=== PATIENT | male | born 1980 | race American Indian/Alaskan Native ===

== ENCOUNTER 2020-04-01 09:49 | Outpatient (CLI) | payer OTHER | END 2020-04-01 10:11 | disposition home or self-care (01) | LOC: RAD 09:49 | PROVIDERS: ATTEND Orthopaedic Surgery | DX: M25.572 Pain in left ankle and joints of left foot (principal) ==

== ENCOUNTER → 2020-04-01 12:28 | Outpatient (CLI) | payer OTHER | END | disposition home or self-care (01) | LOC: LAB 12:28 | PROVIDERS: ATTEND Orthopaedic Surgery | DX: D64.89 Other specified anemias (principal); M06.4 Inflammatory polyarthropathy; M85.88 Other specified disorders of bone density and structure, other site; E55.9 Vitamin D deficiency, unspecified; E88.89 Other specified metabolic disorders; M10.9 Gout, unspecified ==